=== PATIENT | male | born 1975 ===

== ENCOUNTER 2025-04-05 06:20 | Day surgery (SDC) | payer OTHER, SELFPAY | END 2025-04-05 11:38 | disposition home or self-care (01) | LOC: GI 06:20 | PROVIDERS: ATTENDING PHYSICIAN Internal Medicine Gastroenterology | DX: Z12.11 Encounter for screening for malignant neoplasm of colon (principal); K57.30 Diverticulosis of large intestine without perforation or abscess without bleeding; Z80.0 Family history of malignant neoplasm of digestive organs; Z86.0101 Personal history of adenomatous and serrated colon polyps | CPT/HCPCS: G0105 ==